=== PATIENT | female | born 1945 | race Caucasian/White ===

== ENCOUNTER → 2024-02-15 16:10 | Outpatient (REF) | payer MEDICARE, OTHER, SELFPAY | LOC: HWRAD 16:10 | PROVIDERS: ATTENDING PHYSICIAN Student in an Organized Health Care Education/Training Program | DX: M25.551 Pain in right hip (principal) | CPT/HCPCS: 72110; 73502 ==

== ENCOUNTER → 2024-02-26 13:55 | Outpatient (REF) | payer MEDICARE, OTHER, SELFPAY | LOC: HWRAD 13:55 | PROVIDERS: ATTENDING PHYSICIAN Student in an Organized Health Care Education/Training Program | DX: M81.0 Age-related osteoporosis without current pathological fracture (principal) | CPT/HCPCS: 77080 ==

== ENCOUNTER → 2024-04-15 14:30 | Outpatient (REF) | payer MEDICARE, OTHER, SELFPAY | LOC: RAD 14:30 | PROVIDERS: ATTENDING PHYSICIAN Student in an Organized Health Care Education/Training Program | DX: R60.0 Localized edema (principal) | CPT/HCPCS: 93970 ==

== ENCOUNTER 2024-09-22 17:58 | Inpatient (IN) | payer MEDICARE, OTHER, SELFPAY ==
[2024-09-22] VITALS (9 sets, daily range): BP systolic 97–129; BP diastolic 62–99; BMI 29.0
[2024-09-22 12:30] LABS: % Basophils 0.6 % (0-2); % Eosinophils 1.1 % (0-6); % Immature Granulocytes 0.4 % (0-0.5); % Lymphocytes 26.2 % (20.5-51.1); % Monocytes 9.9 % (1.7-9.3); % Neutrophils 61.8 % (42.2-75.2); Absolute Eosinophils 0.1 10^3/uL (0-0.7); Absolute Lymphocytes 1.4 10^3/uL (1.2-3.4); Absolute Monocytes 0.5 10^3/uL (0.1-0.6); Absolute Neutrophils 3.2 10^3/uL (1.4-6.5); Hematocrit 42.1 % (37.0-47.0); Hemoglobin 14.2 g/dL (12.0-16.0); Mean Corp Hgb Conc. 33.7 g/dL (33.0-37.0); Mean Corpuscular Hgb 31.2 pg (27.0-31.0); Mean Corpuscular Volume 92.5 fL (81.0-99.0); Mean Platelet Volume 9.8 fL (7.4-10.4); Nucleated Red Blood Cells % 0 %; Platelet Count 228 10^3/uL (130-400); Red Blood Cell Count 4.55 10^6/uL (4.20-5.40); Red Cell Dist. Width 13.8 % (11.5-14.5); White Blood Cell Count 5.2 10^3/uL (4.8-10.8)
[2024-09-22 12:54] LABS: Troponin I < 0.012 ng/ml
[2024-09-22 12:59] LABS: Alkaline Phosphatase 71 U/L (38-126); Blood Urea Nitrogen 21 mg/dl (7-17); Carbon Dioxide 26 mmol/L (22-30); Chloride 100 mmol/L (98-107); Glucose 99 mg/dl (70-99); Potassium 4.8 mmol/L (3.5-5.1); Sodium 135 mmol/L (135-145); Total Protein 8.1 g/dl (6.3-8.2); eGFR > 60.00
[2024-09-22 13:00] LABS: ALT (SGPT) 25 U/L (0-35); AST (SGOT) 35 U/L (14-36)
--- NOTE | 2024-09-22 13:10 | ED.GENMED ---
History of Present Illness
<Renan Pichardo DO - Last Filed: 09/22/24 13:39>
General
Chief Complaint: Chest Pain
Source: patient and family
Time Seen by Provider: 09/22/24 12:00
History of Present Illness
History of Present Illness:
78-year-old female who presents with 2 weeks of chest tightness and palpitations. She also reports low shortness of breath. Symptoms come and go. She saw her primary doctor about 10 days ago who found her in A-fib. He advised at that time that
she come to the emergency department. The patient states that unfortunately she takes care of her with Parkinson's and could not get here then. No fevers. She does state that sometimes the symptoms will come on at rest. Daughter states
that she really does not like going to see his doctor\\so really has not had preventative care
Past History
<Renan Pichardo DO - Last Filed: 09/22/24 13:39>
Past History
ED Past Medical History: Arrthythmia (September 2024 A-fib)
Social History
Tobacco: Non-smoker
Phy Exam
<Renan Pichardo DO - Last Filed: 09/22/24 13:39>
Physical Exam
Physical Exam:
CONSTITUTIONAL Patient alert and oriented to person, place and time. Well-appearing. Vital signs reviewed.
HEAD atraumatic, normocephalic.
EYES eyelids normal to inspection, Extraocular muscles intact, Conjunctiva normal, Sclera normal.
NECK normal range of motion, Trachea midline, no jugular venous distention.
RESPIRATORY CHEST No respiratory distress noted, Chest expansion equal, Bilateral breath sounds clear.
CARDIOVASCULAR regular rate and rhythm, Heart sounds normal. Atrial flutter noted on telemetry
ABDOMEN abdomen nontender, Bowel sounds normal. No distention.
BACK normal inspection, no obvious deformities
UPPER EXTREMITY range of motion normal, Motor strength normal, no cyanosis, no edema.
LOWER EXTREMITY range of motion normal, Motor strength normal, no cyanosis, left greater than right ankle edema.
NEURO Speech normal, No focal motor deficits, Lay coma scale 15, Memory normal, Cranial Nerves intact to screening exam.
SKIN skin warm, dry, and normal in color.
Scores
<Ramos Camacho MD - Last Filed: 09/24/24 06:02>
Heart Score for Chest Pain Patients
STEMI patient?: Not applicable
Course
<Renan Pichardo DO - Last Filed: 09/22/24 13:39>
Orders/Labs/Results
Orders:
Orders
09/22/24 11:00
Electrocardiogram (*1) Urgent
Reason for Study: Chest Pain
EKG- Treatment ONCE
09/22/24 12:05
Comprehensive Metabolic Panel Urgent
09/22/24 12:06
Complete Blood Count/With Diff Urgent
TSH Reflex To Free T4 Urgent
Comment: ADD ON
Troponin I Urgent
09/22/24 12:26
D-Dimer Urgent
09/22/24 13:36
Add On- LAB Urgent
Tests Added?: TSH reflex to T4
09/22/24 13:38
CT Chest PE Study Urgent
Comment:
Reason For Exam: cp, palpitations
09/22/24 13:39
US Periph Venous LOWER Ext LT Urgent
Comment:
Reason For Exam: edema, elevated DDIMER
09/22/24 Dinner
Gluten Free
At Your Request: Full Participation
09/22/24 17:26
Admit/Transfer Patient As Directed
Co-Sign Provider:
Level of Care: Inpatient admission
Assign to:: Telemetry
Physician / Group: Htay
Diagnosis: Symptomatic Atrial Flutter
Reason for Telemetry: Arrhythmia
Date to Stop Telemetry: 09/25/24
Time to Stop Telemetry: 11:00
Reason for Hospitalization: Cardioversion
Expected length of stay greater than two midnights?: Yes
ELOS- Estimated Length of Stay in days: 3
I certify the patient meets the requirements for IP care: Yes
PRN Pain Medication Management As Directed
May give lesser potent ordered pain med per pt: Yes
preference::
Protocol:: Medication orders for pain may be administered in a
manner that supports deferring to patient preference
when the pt is:
- Requesting an ordered lesser potent pain medication.
Least to most potent pain medications are defined
as: acetaminophen < NSAID < tramadol < opioids
(morphine, oxycodone, hydromorphone).
- Requesting a lesser dose of the same medication IF
ORDERED.
- Requesting a less intrusive route of administration
if both routes are prescribed by the provider (PO <
IV).
09/22/24 17:30
Code Status As Directed
Resuscitation Status: Full Code
09/22/24 18:00
Troponin I Routine
09/22/24 18:45
Acetaminophen [Tylenol] 650 mg PO Q4HPRN PRN
09/22/24 18:45
CARDIOLOGY CONSULT Routine
Consulting Provider: Vince Elaine
Was physician already notified: Yes
Activity As Directed
Activity Level: Out of Bed-Early Mobility
With Assistance
I&O [Intake/ Output] As Directed
Frequency: q12h
Vital Signs As Directed
Frequency: Per unit guidelines
Weight As Directed
Frequency: Daily
09/22/24 20:00
Apixaban [Eliquis] 5 mg PO BID
09/23/24
Echo Michele W/echo Doppler (#17) Routine
Reason for Study: A flutter
09/23/24 Breakfast
NPO
Allow oral meds: Yes
Allow clear liquids: 4hrs prior to procedure
Comment: may have unrestricted clear liquid up to 4 hrs prior to scheduled procedure
09/23/24 07:23
Albumin IN AM
Basic Metabolic Panel IN AM
Complete Blood Count/No Diff IN AM
Ionized Calcium IN AM
PTH [Intact PTH Includes Calcium] IN AM
Vitamin D, 25-OH IN AM
09/25/24 11:00
DC Protocol for Telemetry ONCE
Abnormal Lab Results
09/22/24 09/22/24 09/22/24
12:05 12:06 12:26
MCH 31.2 H pg
(27.0-31.0)
Monocytes % 9.9 H %
(1.7-9.3)
D-Dimer 1.48 H ug/mlFEU
(0.00-0.50)
BUN 21 H mg/dl
(7-17)
Calcium 11.0 H mg/dl
(8.4-10.2)
09/22/24 12:06
09/22/24 12:05
Vital Signs
Initial and Last Documented VS:
Initial Vital Signs
Temp Pulse Resp BP Pulse Ox
98 F 89 16 124/91 99
09/22/24 10:58 09/22/24 10:58 09/22/24 10:58 09/22/24 10:58 09/22/24 10:58
Last Documented Vital Signs
Temp Pulse Resp BP Pulse Ox
97.5 F 66 14 123/80 93
09/23/24 14:45 09/23/24 14:45 09/23/24 14:45 09/23/24 14:45 09/23/24 14:45
<Ramos Camacho MD - Last Filed: 09/24/24 06:02>
Orders/Labs/Results
Orders:
Orders
09/22/24 11:00
Electrocardiogram (*1) Urgent
Reason for Study: Chest Pain
EKG- Treatment ONCE
09/22/24 12:05
Comprehensive Metabolic Panel Urgent
09/22/24 12:06
Complete Blood Count/With Diff Urgent
TSH Reflex To Free T4 Urgent
Comment: ADD ON
Troponin I Urgent
09/22/24 12:26
D-Dimer Urgent
09/22/24 13:36
Add On- LAB Urgent
Tests Added?: TSH reflex to T4
09/22/24 13:38
CT Chest PE Study Urgent
Comment:
Reason For Exam: cp, palpitations
09/22/24 13:39
US Periph Venous LOWER Ext LT Urgent
Comment:
Reason For Exam: edema, elevated DDIMER
09/22/24 Dinner
Gluten Free
At Your Request: Full Participation
09/22/24 17:26
Admit/Transfer Patient As Directed
Co-Sign Provider:
Level of Care: Inpatient admission
Assign to:: Telemetry
Physician / Group: Arminda
Diagnosis: Symptomatic Atrial Flutter
Reason for Telemetry: Arrhythmia
Date to Stop Telemetry: 09/25/24
Time to Stop Telemetry: 11:00
Reason for Hospitalization: Cardioversion
Expected length of stay greater than two midnights?: Yes
ELOS- Estimated Length of Stay in days: 3
I certify the patient meets the requirements for IP care: Yes
PRN Pain Medication Management As Directed
May give lesser potent ordered pain med per pt: Yes
preference::
Protocol:: Medication orders for pain may be administered in a
manner that supports deferring to patient preference
when the pt is:
- Requesting an ordered lesser potent pain medication.
Least to most potent pain medications are defined
as: acetaminophen < NSAID < tramadol < opioids
(morphine, oxycodone, hydromorphone).
- Requesting a lesser dose of the same medication IF
ORDERED.
- Requesting a less intrusive route of administration
if both routes are prescribed by the provider (PO <
IV).
09/22/24 17:30
Code Status As Directed
Resuscitation Status: Full Code
09/22/24 18:00
Troponin I Routine
09/22/24 18:45
Acetaminophen [Tylenol] 650 mg PO Q4HPRN PRN
09/22/24 18:45
CARDIOLOGY CONSULT Routine
Consulting Provider: Vince Elaine
Was physician already notified: Yes
Activity As Directed
Activity Level: Out of Bed-Early Mobility
With Assistance
I&O [Intake/ Output] As Directed
Frequency: q12h
Vital Signs As Directed
Frequency: Per unit guidelines
Weight As Directed
Frequency: Daily
09/22/24 20:00
Apixaban [Eliquis] 5 mg PO BID
09/23/24
Echo Michele W/echo Doppler (#17) Routine
Reason for Study: A flutter
09/23/24 Breakfast
NPO
Allow oral meds: Yes
Allow clear liquids: 4hrs prior to procedure
Comment: may have unrestricted clear liquid up to 4 hrs prior to scheduled procedure
09/23/24 07:23
Albumin IN AM
Basic Metabolic Panel IN AM
Complete Blood Count/No Diff IN AM
Ionized Calcium IN AM
PTH [Intact PTH Includes Calcium] IN AM
Vitamin D, 25-OH IN AM
09/25/24 11:00
DC Protocol for Telemetry ONCE
Abnormal Lab Results
09/22/24 09/22/24 09/22/24
12:05 12:06 12:26
MCH 31.2 H pg
(27.0-31.0)
Monocytes % 9.9 H %
(1.7-9.3)
D-Dimer 1.48 H ug/mlFEU
(0.00-0.50)
BUN 21 H mg/dl
(7-17)
Calcium 11.0 H mg/dl
(8.4-10.2)
09/22/24 12:06
09/22/24 12:05
Vital Signs
Initial and Last Documented VS:
Initial Vital Signs
Temp Pulse Resp BP Pulse Ox
98 F 89 16 124/91 99
09/22/24 10:58 09/22/24 10:58 09/22/24 10:58 09/22/24 10:58 09/22/24 10:58
Last Documented Vital Signs
Temp Pulse Resp BP Pulse Ox
97.5 F 66 14 123/80 93
09/23/24 14:45 09/23/24 14:45 09/23/24 14:45 09/23/24 14:45 09/23/24 14:45
<DO Nahid Elliott Last Filed: 09/22/24 13:39>
MDM/Problems Addressed
MDM/Problems Addressed:
Chest pain, acute atrial flutter
<DO Nahid Elliott Last Filed: 09/22/24 13:39>
*Pulse Oximetry
Patient hypoxic: no
*Pricing Consultant Interpretation
Rate: normal
Interpretation: abnormal
Rhythm: atrial flutter
*Critical Care Note
Total Time (30-74mins, 75-104mins- exclusive of procedures): Not Applicable
Data Reviewed
Source: patient and family
Prescriptions/Medications Considered But Not Given:
Consider Cardizem but ventricular rate is controlled
<DO Nahid Elliott Last Filed: 09/22/24 13:39>
Patient Management
Discussion with other providers: Food Truck Caterer (Case discussed with Dr. Elaine who will evaluate.)
Escalation/DeEscalation of care consider admission/obs:
78-year-old female presents with does noted above. Found to be in a flutter. Given her age, consulted cardiology. Cardiology to see at bedside. D-dimer elevated. Check PE study as well as ultrasound left lower extremity. Signed out to Dr. Camacho
pending results
<Ramos Camacho MD - Last Filed: 09/24/24 06:02>
Update Note
Update Note:
Pt evaluated in ED by (cardiology) - recommends admission to hospitalist service for further evaluation and treatment, including likely MICHELE/Cardioversion
ED Attending Note
<Renan Pichardo DO - Last Filed: 09/22/24 13:39>
-
Portions of this chart may have been created with voice recognition software.� Occasional wrong word or��sound alike� substitutions may have occurred due to the inherent limitations of voice recognition software.
Discharge Plan
Departure
Patient Disposition: Admit
Date of Disposition: 09/22/24
Time of Disposition: 16:50
Admit to: Telemetry
Presentation/result/management discussed w/ accepting MD/DO: Hospitalist
Discharge Problem:
Atrial fibrillation
Interventions
Interventions:
*Risk Screen - Suicide Last Done: 09/22/24 19:56
*General Assessment Last Done: 09/22/24 12:16
*Neglect/Abuse Screening Last Done: 09/22/24 11:01
*ED- Fall Risk Assessment Last Done: 09/22/24 12:08
*ED COVID-19 Vaccine History Last Done: 09/22/24 19:24
*Nursing Disposition Last Done: 09/22/24 18:38
ED- Cardiac Assessment Last Done: 09/22/24 12:08
Discharge Date and Time
Discharge Date/Time: 09/22/24 18:39
--- NOTE | 2024-09-22 13:26 | CON.CAR ---
Addendum entered and electronically signed by Vince Elaine MD 09/22/24 18:22:
78 yo female with PMH of lymphedema was sent to ED by PCP for symptomatic atrial flutter. Her main symptom is MART. 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 Exam with irregular rhythm, no murmurs, 1+ LE edema. Tele: Atrial flutter 60s.
Atrial flutter, new, symptomatic. Start eliquis 5mg bid. Plan for SHEYLA/DCCV in AM.
Rates are not elevated. Will not start AV prachi agent at this time.
Original Note:
Consultation
Consultation Request
Date/Time Consultation Requested: 09/22/2024 13:00
Date/Time Consultation Performed: 09/22/2024 13:30
Requesting Provider: Dr. Pichardo
Performing Provider: YRIS Almanzar for Dr. Elaine
Reason for Consultation: Chest tightness, shortness of breath
Medical History
-
Chief Complaint: Chest tightness, shortness of breath
History of Present Illness:
Deborah Dc is a 78-year-old female (plans on establishing care with microfilm clerk Dr. Kaiser), with bilateral lower extremity lymphedema, osteoporosis and recently diagnosed atrial flutter. She presented to her PCP with shortness of breath and
chest discomfort since June. This office visit was 09/12/2024. EKG at that office visit showed atrial flutter. She was referred to the emergency department for full evaluation. Regarding her chest pressure, this has been intermittent. It has
been ongoing for several months. She thinks it is worse when she is laying in bed at night. She has been experiencing shortness of breath. It is worse with exertion. She has none at rest. She also endorses dizziness. This also has been going
on for weeks. She feels off balance. No presyncope/syncope.
Past Medical History
Past Medical History: Arrhythmias and Other (Osteoporosis)
Past Surgical History: and Tonsilectomy
Social History
Tobacco: Non-Smoker
Alcohol: None
Drug: None
Personal:
Living: With Family (. He has Parkinson's and she is his caregiver.)
Employment: Retired ([employer] with [employer] exposure.)
Family History
Family History: Reviewed & Not Pertinent
Allergies / Home Medications
Allergy/AdvReac Type Severity Reaction Status Date / Time
meperidine [From Demerol] Allergy Unknown Verified 09/22/24 11:00
Review of Systems
-
History Source: Patient
All other systems: Negative unless noted
Constitutional: Fatigue
EENT: No Symptoms
Respiratory: Trouble Breathing
Cardiac: Chest Pain
Abdomen/GI: No Symptoms
: No Symptoms
Musculoskeletal: No Symptoms
Skin: No Symptoms
Neurological: Dizzy
Endocrine: No Symptoms
Hematologic/Lymphatic: No Symptoms
Physical Exam
Vital Signs
Temp Pulse Resp BP Pulse Ox
98 F 89 15 124/83 98
09/22/24 10:58 09/22/24 10:58 09/22/24 12:00 09/22/24 12:00 09/22/24 12:08
Lab Results
09/22/24 12:06
09/22/24 12:05
Troponin I < 0.012 ng/ml 09/22/24 12:06
Physical Exam
General: Well Developed, Well Nourished, No Apparent Distress and Comfortable
HEENT: Normocephalic, Anicteric and Moist Mucous Membranes
Respiratory: Clear and Non Labored Respirations
Cardiac: S1/S2 and Irregular Rhythm
Breast: Deferred by me
GI: Soft, Non Tender, Non Distended and Normal Bowel Sounds
Rectal: Deferred by Provider
Genito-urinary: No Costovertebral Tender
Musculoskeletal: No Clubbing, No Cyanosis and Edema (+1 B/L LE)
Skin: Warm and Dry
Neuro: AO x 3
Hematologic/Lymphatic: No Lymphadenopathy
Psych: Calm
Impression / Plan
-
I/P: 78F with osteoporosis, hypercalcemia, chronic venous insufficiency with bilateral lymphedema, and recently diagnosed atrial flutter presents with chest discomfort, shortness of breath, and palpitations.
Outpatient microfilm clerk: Dr. Dez Kaiser
Atrial flutter, type unknown
-Rate controlled without AV prachi agents
-Oral Anticoagulation: Apixaban 5 mg twice daily, case management to rojelio, she is not sure she wants to be on this long-term but is agreeable for at least 4 weeks post DCCV
-[id number]: score at least 3 (age 75 or more, female gender)
-Plan for rhythm control with SHEYLA/DCCV in a.m. if PE study is negative
Chest discomfort
-Trend troponin and EKG
-Atypical as it is worse at night when she is laying down, consider PPI
Shortness of breath
-D dimer elevated, CT PE pending
Hypercalcemia
Osteoporosis
Chronic venous insufficiency with bilateral lymphedema
Data Reviewed
-
EKG: Report Reviewed by me (Atrial flutter, rate 72)
Labs: Labs Reviewed by me
Old Records: Reviewed
[2024-09-22 13:30] LABS: D-Dimer 1.48 ug/mlFEU (0.00-0.50)
[2024-09-22 16:19] LABS: TSH Reflex To Free T4 1.52 uIU/ml (0.47-4.68)
--- NOTE | 2024-09-22 17:33 | W.PN.UPDATE ---
Update Note
Progress Note Update
This note serves as an addendum to the H&P by golf stud riveter TALIA Ruba MIGUEL
HPI
78F HX osteoporosis, hypercalcemia, chronic venous insufficiency with bilateral lymphedema, and recently diagnosed atrial flutter. Outpatient pyrometer mechanic: Dr. Dez Kaiser
- seen by PCP for chest discomfort since Jun 2024 shortness of breath, and palpitations.
- Op EKG showed atrial flutter sent ER for further evalautiuon
ROS
- intermittent chest pressure and has been ongoing for several months.
- it is worse when she is laying in bed at night.
- associated SoB worse with exertion
- also dizziness has been going on for weeks.
- No presyncope/syncope.
PHX: see above
VSS
09/22/24
10:58
Temp 98 F
Pulse 89
Resp Rate 16
Blood pressure 124/91
SaO2 99
Oxygen Mode of Delivery Room air
PE
Gen: NAD
HEENT: anicteric
Neck: supple
Lungs: CTA
Cor: Irregular
Abdomen: Soft, Non Tender, Non Distended
TELEGRAPH MECHANIC: AAO3
MS:no edema
Psych: calm
09/22/24 09/22/24 09/22/24
12:05 12:06 12:26
WBC 5.2
Hgb 14.2
Plt Count 228
D-Dimer 1.48 H
BUN 21 H
Creatinine 0.9
eGFR > 60.00
Calcium 11.0 H
Troponin I < 0.012
TSH (Reflex) 1.52
EKG
ATRIAL FLUTTER WITH VARIABLE A-V BLOCK
ABNORMAL ECG
NO PREVIOUS ECGS AVAILABLE
Confirmed by HONORIO FELDER MD ([id number]) on 09/22/2024 11:22:15 AM
CXR: No evidence of deep venous thrombosis of the left lower extremity.
CT Chest PE Study:
No evidence of central pulmonary embolism.
Heterogeneous enlargement of the thyroid gland with some calcifications.
Suggest elective dedicated Thyroid Ultrasound for more complete evaluation.
ASSESSMENT & PLAN
Atrial flutter of unknown chronicity presumed symtomatic
[id number]: 3 (76yr, female )
VR 60s- 70s
- NEG CTC for PE
- Rate controlled without AV prachi agents
- AC : agree with Apixaban 5 mg BID; Patient is agreeable for at least 4 weeks post DCCV
- CRM consult for pricing
- NPO after MN for SHEYLA/ CV tomorrow per Card
- CBC card consulted
Chest discomfort: atypical for cardia origin given subacute chronicity
- NEG TPNI
-Trend troponin and EKG
Hypercalcemia
Osteoporosis
Chronic venous insufficiency with bilateral lymphedema
DVT Px: on Eliquis
Full code
IP TLM
--- NOTE | 2024-09-22 17:36 | HPS.HSE ---
Family Physician
-
Family Physician: Pita Tucker MD, Resident
Chief Complaint
-
Chest Discomfort and Shortness of Breath
History of Present Illness
Patient is a 78 y/o female past medical history of lower extremity lymphedema, and osteoporosis who presents with chest discomfort and shortness of breath. She reports intermittent symptoms for the past few weeks. She notes occasional episodes of
dizziness as well as elevated heart rates noted on her smart watch. She denies any change in her chronic lower extremity edema.
Medical History
Past Medical History
Past Medical History: Reports Other
Additional Past Medical History:
Bilateral Lower Extremity Lymphedema
Lower Extremity Venous Insufficiency
Osteoporosis
Past Surgical History: Reports Other
Additional Past Surgical History:
Section
Social History
Tobacco: Non-smoker
Alcohol: None
Family History
Family History: Not pertinent
Allergies / Home Medications
Allergies reflects when Allergies were last updated in [employer].
Home Medications with original date entered in [facility]
Allergy/Medication List:
Allergies
Allergy/AdvReac Type Severity Reaction Status Date / Time
meperidine [From Demerol] Allergy Unknown Verified 09/22/24 11:00
Home Medications
Adrenal Support 1 cap PO DAILY 09/22/24
aspirin 81 mg tablet,delayed release 81 mg PO DAILY 09/22/24
cholecalciferol (vitamin D3) 125 mcg (5,000 unit) tablet (Vitamin D3) 250 mcg PO HS 09/22/24
coenzyme Q10 100 mg capsule (CoQ-10) 100 mg PO DAILY 09/22/24
krill 1,000 mg-omega-3 170 mg-dha 50 mg-epa 80 [id number] capsule (krill oil) 1 cap PO DAILY 09/22/24
magnesium oxide 200 mg PO DAILY 09/22/24
turmeric 400 mg capsule 400 mg PO DAILY 09/22/24
Review of Systems
-
A 12 point ROS was completed and negative except as noted: Yes
Constitutional: Denies Fever or Chills
Respiratory: Reports Trouble Breathing; Denies Cough
Cardiac: Reports See HPI
Physical Exam
Vital Signs
Vital Signs
Temp Pulse Resp BP Pulse Ox
98 F 72 18 128/89 96
09/22/24 10:58 09/22/24 14:30 09/22/24 14:30 09/22/24 14:00 09/22/24 14:30
Physical Exam
General: Comfortable and Conversant
HEENT: Anicteric and Moist mucous membranes
Respiratory: Clear and Non Labored Respirations
Cardiac: S1/S2 and Irregular Rhythm
GI: Soft and Non Tender
Rectal: Deferred by Provider
Musculoskeletal: No Clubbing, No Cyanosis and Other (Chronic lower extremity lymphedema)
Skin: Warm and Dry
Neuro: Awake, Alert, Oriented and Nonfocal/grossly intact
Psych: Calm
Laboratory Results
-
09/22/24 12:06
09/22/24 12:05
Laboratory Results
Total Bilirubin 1.0 mg/dl (0.2-1.3) 09/22/24 12:05
AST 35 U/L (14-36) 09/22/24 12:05
ALT 25 U/L (0-35) 09/22/24 12:05
Alkaline Phosphatase 71 U/L (38-126) 09/22/24 12:05
Troponin I < 0.012 ng/ml 09/22/24 12:06
Data Reviewed
-
Lab Data: Labs Reviewed by me
Impression/Plan
-
Symptomatic Atrial Flutter of unknown chronicity
-Consult Cardiology
-Currently ate controlled without AV prachi agents
-Start Eliquis for anticoagulation
-Plan for NPO after midnight for SHEYLA / DCCV tomorrow
Hypercalcemia
-Hold vitamin D supplement
-Check vitamin D level, ionized calcium and intact PTH
Chronic Lower Extremity Lymphedema
Chronic Venous Insufficiency
-Stable
DVT proph: Eliquis
Code Status: Full Code
[2024-09-22] MEDS: ELIQUIS 5 MG PO (19:33)
--- NOTE | 2024-09-22 20:01 | PTCARENOTE ---
Patient arrived from ED, with daughter at bedside. VSS. Aflutter on tele box # 22. Patient denies SOB. Patient denies pain. AAO x 4. OOB with standby assistance. No prior history of falls. First dose of Eliquis administered--first dose education
provided. Afib booklet provided to patient for further NOAC education. Patient to be NPO at midnight for anticipated SHEYLA with cardioversion tomorrow, 09/23. Skin check completed. Left posterior calf with present on admission PVD skin changes, due to
lymphedema. Patient oriented to room. Patient educated on importance of ringing call elias prior to exiting bed, due to increase risk of falling while in the hospital. Patient agreeable. No bed alarm in place. Bed in lowest position. Call elias and
personal belongings within reach.
[2024-09-23 03:33] VITALS: BP 120/78
[2024-09-23 06:00] VITALS: BMI 29.1
[2024-09-23 07:25] VITALS: BP 115/73
[2024-09-23 07:35] LABS: Ionized Calcium 1.29 mMOL/L (1.15-1.33)
[2024-09-23 07:39] LABS: Hematocrit 41.9 % (37.0-47.0); Hemoglobin 14.2 g/dL (12.0-16.0); Mean Corp Hgb Conc. 33.9 g/dL (33.0-37.0); Mean Corpuscular Hgb 31.2 pg (27.0-31.0); Mean Corpuscular Volume 92.1 fL (81.0-99.0); Mean Platelet Volume 9.2 fL (7.4-10.4); Platelet Count 220 10^3/uL (130-400); Red Blood Cell Count 4.55 10^6/uL (4.20-5.40); Red Cell Dist. Width 13.8 % (11.5-14.5); White Blood Cell Count 4.6 10^3/uL (4.8-10.8)
[2024-09-23 07:52] LABS: Albumin 4.1 g/dl (3.5-5.0); Blood Urea Nitrogen 18 mg/dl (7-17); Calcium 10.2 mg/dl (8.4-10.2); Carbon Dioxide 29 mmol/L (22-30); Chloride 104 mmol/L (98-107); Estimated Creatinine Clearance 39 ml/min; Glucose 101 mg/dl (70-99); Potassium 5.3 mmol/L (3.5-5.1); Sodium 138 mmol/L (135-145); eGFR 58.02
[2024-09-23 07:59] LABS: Troponin I < 0.012 ng/ml
[2024-09-23] MEDS: ELIQUIS 5 MG PO (08:03)
[2024-09-23 08:09] LABS: Vitamin D, 25-OH*** 45.4 ng/mL (30-80)
[2024-09-23 09:17] LABS: Intact PTH 122.9 pg/ml (13.6-85.8)
--- NOTE | 2024-09-23 10:50 | W.PN.CD ---
Today's Communication / Plan
-
S/p cardioversion. Now back in sinus rhythm.
Consulted case management for DOAC pricing
She is safe for discharge from a cardiovascular standpoint once her anticoagulation plan has been finalized.
Impression / Plan
-
I/P: 78F with osteoporosis, hypercalcemia, chronic venous insufficiency with bilateral lymphedema, and recently diagnosed atrial flutter presents with chest discomfort, shortness of breath, and palpitations. She is s/p successful cardioversion.
Outpatient brim raiser: Dr. Dez Kaiser
Atrial flutter, type unknown
-Initially rate controlled without AV prachi agents
-Now back in sinus rhythm post-cardioversion on 09/23/24
-Oral Anticoagulation: Apixaban 5 mg twice daily, case management to serrato, she is not sure she wants to be on this long-term but is agreeable for at least 4 weeks post DCCV
-[id number]: score at least 3 (age 75 or more, female gender)
Chest discomfort
-Serial troponins negative. CT PE negative
-Atypical as it is worse at night when she is laying down, consider PPI
Hypercalcemia
Osteoporosis
Chronic venous insufficiency with bilateral lymphedema
Subjective: Continues to feel mildly short of breath and dizzy.
Physical Exam
Vital Signs/Labs
Vital Signs
Temp Pulse Resp BP Pulse Ox
97.4 F 61 18 115/73 98
09/23/24 07:25 09/23/24 07:25 09/23/24 07:25 09/23/24 07:25 09/23/24 07:25
09/22/24 09/23/24 09/24/24
06:59 06:59 06:59
Actual Weight 65.346 kg
09/23/24 07:23
09/23/24 07:23
LAB Results
09/22/24 09/23/24
12:06 07:23
Troponin I < 0.012 < 0.012
Physical Exam
Constitutional: No acute distress and Comfortable
Cardiovascular: Rhythm & rate is regular, Pedal edema is absent, Systolic murmur present and S1S2 is normal
Respiratory: Respiratory effort normal and Lungs clear to auscul.
Neuro/Psych: AO x 3
Data Reviewed
-
Date of Service: September 23, 2024
Medical Decision Making: Reviewed Test Results, Independent Historian Assessment, Test Interpretation and Review of Case with other Provider
EKG: Tracing Personally Visualized and interpreted
Labs: Labs Reviewed by me
[2024-09-23 11:35] VITALS: BP 124/76
--- NOTE | 2024-09-23 12:05 | W.PN.HOSP.TC ---
Today's Communication/Plan
-
OK for DC after confirm cost of Eliquis
Assessment / Plan
Assessment / Plan
Symptomatic Atrial Flutter of unknown chronicity
-appreciate cardiology consult
-s/p SHEYLA Cardioversion this morning and now in sinus rhythm
-started on Eliquis
-OK for DC after CM confirms cost
Hypercalcemia
-OK to resume vitamin D
-Ca nl this AM, PTH elevated
-discussed briefly with Dr. Post - and will refer as outpatient for elevated PTH. She will need outpatient 24 hour urine calcium and DEXA
Chronic Lower Extremity Lymphedema
Chronic Venous Insufficiency
-Stable
DVT proph: Eliquis
Code Status: Full Code
Anticipated Discharge: Within 24 hours
Subjective/Interval History
-
Date of Service: September 23, 2024
feeling well
hoping to go home today
Objective Data
-
Labs:
Laboratory Results
09/23/24
07:23
WBC 4.6 L
Hgb 14.2
Hct 41.9
Plt Count 220
Sodium 138
Potassium 5.3 H
Chloride 104
Carbon Dioxide 29
BUN 18 H
Creatinine 1.0
Glucose 101 H
Calcium 10.2
Vital Signs:
Vital Signs
Temp Pulse Resp BP Pulse Ox
97.6 F 56 16 124/76 100
09/23/24 11:35 09/23/24 11:35 09/23/24 11:35 09/23/24 11:35 09/23/24 11:35
Review of Systems
-
History Source: Patient
All other systems: Reviewed and negative
Physical Exam
-
General: No Apparent Distress
HEENT: PERRLA
Respiratory: Clear to Auscultation; Negative Wheezes
Cardiac: Regular Rhythm and S1/S2
GI: Soft and Nontender
Musculoskeletal: No Edema
Skin: Warm and Dry; Negative Rash
Neuro: AO x 3
Psych: Calm
Data Reviewed
-
Diagnostic Radiology: Report Reviewed by me
Labs: Labs Reviewed by me
[2024-09-23 12:35] VITALS: BP 120/72
[2024-09-23 13:35] VITALS: BP 114/74
--- NOTE | 2024-09-23 14:19 | CM ---
energy manager reviewed patient's chart and met with patient and patient lives at [facility] independent living with her spouse patient reports she is independent with adl's and ambulation, no dme, patient drives, patient reports that she did not
have a pharmacy and she did not take any medication, wrapper caser spoke with [email or web address] the pharmacy that patient would use and physician faxed over prescription, cost of Eliquis is over $500 per [email or web address] pharmacy. energy manager asked patient for ID number
to confirm cost of medication and see what cost would be when patient met deductible, and patient declined stating that she will take the Eliquis for now and the $500 and follow up with Dr Kaiser in office. Patient has Medicare Part D plan and
coupons do not work with Medicare D Plan. Patient is aware of this as she manages her 's medication.
PCP: Pita Tucker
Pharmacy: [email or web address]
Plan; Home today with spouse, no needs.
--- NOTE | 2024-09-23 14:20 | W.DS.TRANS ---
DC Summary - Mon[employer] Caster
-
Discharge Instructions:
Sleep Apnea Risk Low
Discharge Diagnosis/Procedures atrial flutter
Diet Regular
Activity As tolerated
Driving Restrictions As prior to admission
Bathing Restrictions None
Others Tests A 24 hours urine calcium should be collected as
outpatient. A DEXA scan should be ordered if
wasn't done recently.
Instructions:
Stand-Alone Forms:
Changes to Home Medications: Yes
Discharge Medications:
DC Medications w/original date entered in Pager
Adrenal Support 1 cap PO DAILY Supplement 09/22/24
coenzyme Q10 100 mg capsule (CoQ-10) 100 mg PO DAILY Supplement 09/22/24
krill 1,000 mg-omega-3 170 mg-dha 50 mg-epa 80 [id number] capsule (krill oil) 1 cap PO DAILY Supplement 09/22/24
magnesium oxide 200 mg PO DAILY Supplement 09/22/24
turmeric 400 mg capsule 400 mg PO DAILY Stroke 09/22/24
apixaban 5 mg tablet (Eliquis) 5 mg PO BID #60 tabs 09/23/24
cholecalciferol (vitamin D3) 50 mcg (2,000 unit) capsule 50 mcg PO DAILY #30 caps 09/23/24
Home Medication Changes
Stop aspirin.
You are started on Eliquis for stroke prevention post cardioversion and for atrial flutter. This medication will need to be refilled. It is very important to not miss any doses over the next month.
Your Vitamin D3 dosing is decreased.
Pending Results: No
--- NOTE | 2024-09-23 14:24 | W.DCSUMMARY ---
Discharge Summary
Discharge Data
Date of Admission: 09/22/24
Date of Discharge: 09/23/24
-
Pending Results: No
Hospital Course
Discharging Physician : Dr. María Garcia
Disposition : Home
Primary care physician : Dr. Pita Tucker
Principal Discharge diagnosis : Atrial Flutter
Hospital Course :
Ms. Deborah Dc is a 78 yo woman with hx bilateral LE lymphedema, osteoporosis, newly diagnosed aflutter presents to the ER with 2 weeks of chest tightness and palpitations, shortness of breath. EKG with Aflutter. She was admitted to medicine
with Cardiology consulting for symptomatic Aflutter. She was started on Eliquis. She underwent SHEYLA/Cardioversion morning of 09/23 with scientologist of sinus rhythm. She feels improved and wishes to go home. She is discharged with a new script for
Eliquis. Importance of taking this medication as prescribed, especially during first month post cardioversion stressed to patient and she expressed understanding.
Of note, Calcium on admission was 11. Following day normal at 10.2. PTH checked and is elevated. Discussed plan with Dr. Post, who recommends 24 hour urine calcium and DEXA as outpatient (if hasn't recently been done) and referral to
Endocrinology placed.
Time spent on discharge was 31 minutes.
Important imaging findings :
Procedure findings :
Discharge Plan
-
Patient Disposition: Home (Routine Discharge)
Discharge Diagnosis/Procedures: atrial flutter
Diet: Regular
Activity: As tolerated
Driving Restrictions: As prior to admission
Bathing Restrictions: None
Others Tests: A 24 hours urine calcium should be collected as outpatient. A DEXA scan should be ordered if wasn't done recently.
Referrals:
Pita uTcker MD, Resident [Family Provider] - in less than 1 week
Dez Kaiser DO [Active] - 10/13/24 1:20 pm
Gerson Post MD [Consulting Staff] - in two to three weeks (Follow up for elevated PTH level (Ca WNL on day of discharge))
Additional Discharge Medication Instructions: Stop aspirin.
You are started on Eliquis for stroke prevention post cardioversion and for atrial flutter. This medication will need to be refilled. It is very important to not miss any doses over the next month.
Your Vitamin D3 dosing is decreased.
Prescriptions:
New
Eliquis 5 mg Tablet
5 mg PO BID Qty: 60 0RF
cholecalciferol (vitamin D3) 50 mcg (2,000 unit) capsule
50 mcg PO DAILY Qty: 30 0RF
Continued
Adrenal Support capsule
1 cap PO DAILY
coenzyme Q10 [CoQ-10] 100 mg Capsule
100 mg PO DAILY
krill oil 1,[id number] mg Capsule
1 cap PO DAILY
magnesium oxide 200 mg magnesium Tablet
200 mg PO DAILY
turmeric 400 mg Capsule
400 mg PO DAILY
Discontinued
aspirin 81 mg Tablet,Delayed Release (Dr/Ec)
81 mg PO DAILY
cholecalciferol (vitamin D3) [Vitamin D3] 125 mcg (5,000 unit) Tablet
250 mcg PO HS
Patient Comments:
09/22/24: Patient sometimes skips this dose when she forgets
Discharge Orders:
Discharge Patient (As Directed); Ordered 09/23/24
Ordered By: María Garcia
Discharge Date and Time
Print Language: BELIZEAN
[2024-09-23 14:45] VITALS: BP 123/80
== END 2024-09-23 15:27 | disposition home or self-care (01) | DRG 310 ==
LOC: 4 WEST ACU 17:58
PROVIDERS: Physician Assistant Medical; Student in an Organized Health Care Education/Training Program; ADMITTING PHYSICIAN Internal Medicine; ATTENDING PHYSICIAN Student in an Organized Health Care Education/Training Program; CONSULT PHYSICIAN Internal Medicine; EMERGENCY PHYSICIAN Emergency Medicine; FAMILY PHYSICIAN Student in an Organized Health Care Education/Training Program
PROC: 5A2204Z Restoration of Cardiac Rhythm, Single (ICD-10-PCS; 2024-09-23)
PROC: B24BZZ4 Ultrasonography of Heart with Aorta, Transesophageal (ICD-10-PCS; 2024-09-23)
DX: I48.92 Unspecified atrial flutter (principal); R07.89 Other chest pain; I48.91 Unspecified atrial fibrillation; M81.0 Age-related osteoporosis without current pathological fracture; E83.52 Hypercalcemia; I87.2 Venous insufficiency (chronic) (peripheral); I89.0 Lymphedema, not elsewhere classified; Z63.6 Dependent relative needing care at home; Z88.5 Allergy status to narcotic agent
CPT/HCPCS: 71275; 80048; 80053; 82040; 82306; 82330; 83970; 84443; 84484; 85025; 85027; 85379; 92960; 93005; 93312; 93320; 93325; 93971; 99285; Q9967

== ENCOUNTER → 2024-10-16 11:17 | Outpatient (REF) | payer MEDICARE, OTHER, SELFPAY | LOC: HWRCS 11:17 | PROVIDERS: ATTENDING PHYSICIAN Student in an Organized Health Care Education/Training Program; FAMILY PHYSICIAN Student in an Organized Health Care Education/Training Program | DX: I48.92 Unspecified atrial flutter (principal) | CPT/HCPCS: 93306 ==

== ENCOUNTER → 2025-02-09 12:30 | Outpatient (REF) | payer MEDICARE, OTHER, SELFPAY | LOC: WOUND 12:30 | PROVIDERS: ATTENDING PHYSICIAN Surgery; FAMILY PHYSICIAN Student in an Organized Health Care Education/Training Program | DX: I87.312 Chronic venous hypertension (idiopathic) with ulcer of left lower extremity (principal); L97.929 Non-pressure chronic ulcer of unspecified part of left lower leg with unspecified severity; I87.2 Venous insufficiency (chronic) (peripheral); I89.0 Lymphedema, not elsewhere classified | CPT/HCPCS: 99203 ==